=== PATIENT | female | born 1965 | race Caucasian/White ===

== ENCOUNTER 2018-02-24 14:22 | Emergency (ER) | payer BC ==
[~2018-02-24] VITALS: Wt 90.0 kg
[~2018-02-24 14:22] MED LIST: ASTHMA MEDS; BLOOD PRESSURE MED; LIPITOR
[2018-02-24] MEDS ORDERED: ALBUTEROL 0.083% (NEB) 2.5 MG/3 ML AMP HHN STA (15:09)
[2018-02-24] MEDS ORDERED: DEXAMETHASONE 10 MG/ML 1 ML INJ IM ONE (15:30)
[2018-02-24] MEDS ORDERED: BEN25 PO (16:29)
[2018-02-24] MEDS ORDERED: IBUP-1542 PO (16:29)
[2018-02-24] MEDS ORDERED: ALBU18HF INHALATION (16:29)
--- NOTE | 2018-02-24 16:32 | ERD ---
ER Documentation Chief Complaint Chief Complaint ap,nause,BLRRY VISION HPI 52-year-old female presents with multiple complaints. She has coughing and wheezing which started in the last day. She is homeless and is staying with apart. Her partner is having similar symptoms. She also has associations have been moving around in her vagina with some irritation and swelling. She denies discharge or dysuria. She denies fevers, vomiting, chest pain. ROS All systems reviewed and are negative except as per history of present illness. Medications Home Meds Active Scripts Albuterol Sulfate* (Ventolin HFA*) 18 Gm Hfa.aer.ad, 2 PUFF INHALATION Q4H, #1 INHALER Prov:DEWAYNE SKINNER MD 02/24/18 Ibuprofen* (Motrin*) 600 Mg Tab, 600 MG PO Q6, #15 TAB Prov:DEWAYNE SKINNER MD 02/24/18 Diphenhydramine Hcl* (Benadryl*) 25 Mg Cap, 25 MG PO Q6, #15 CAP Prov:DEWAYNE SKINNER MD 02/24/18 Reported Medications [Blood Pressure Med] No Conflict Check 09/21/12 [Asthma Meds] INH No Conflict Check 01/17/10 [Lipitor] TAB No Conflict Check 01/17/10 Allergies Allergies: Coded Allergies: No Known Allergies (Verified Allergy, Unknown, 02/24/18) PMhx/Soc Medical and Surgical Hx: pt denies Surgical Hx History of Surgery: No Anesthesia Reaction: No Hx Neurological Disorder: No Hx Respiratory Disorders: Yes (ENVIROMENTAL ALLERGIES AND ASTHMA) Hx Cardiac Disorders: No Hx Psychiatric Problems: No Hx Miscellaneous Medical Probl: No Hx Alcohol Use: Yes (OCCASIONALLY) Hx Substance Use: Yes (OCC MARIJUANA) Hx Tobacco Use: Yes (7 CIG/DAY OCCASIONAL MARIJUANA) Smoking Status: Never smoker FmHx Family History: No diabetes, No coronary disease, No other Physical Exam Vitals Vital Signs Date Temp Pulse Resp B/P (MAP) Pulse Ox O2 O2 Flow FiO2 Time Delivery Rate 02/24/18 91 18 99 21 15:19 02/24/18 98.2 91 18 140/78 99 14:26 (98) Physical Exam Const: No acute distress Head: Atraumatic Eyes: Normal Conjunctiva ENT: Normal External Ears, Nose and Mouth. TMs and oropharynx normal. Neck: Full range of motion. No meningismus. Resp: Clear to auscultation bilaterally. Scattered wheezing without rales or retractions. Cardio: Regular rate and rhythm, no murmurs Abd: Soft, non tender, non distended. Normal bowel sounds Skin: No petechiae or purpura. Faint blanching macular papular rash. Back: No midline or flank tenderness Ext: No cyanosis, or edema Neur: Awake and alert Psych: Normal Mood and Affect Pelvic examination with farmworker machine shows no foreign bodies, erythema, charge or appreciable significant abnormalities. Albuterol treatment and Decadron 10 mg IM. Patient states wheezing, rash, possibly allergic reaction. Started after [place] in the park. She has no evidence of hypoxemia, rest or distress, signs of pneumonia. She will treated with Benadryl, Ventolin, Profen, primary care follow-up and return precautions. The patient was stable with no new complaints during the ER course. Clinically, there is no current evidence to suggest meningitis, sepsis, acute abdomen, pneumonia, stroke, acute coronary syndrome, pulmonary embolism, aortic dissection or any other emergent condition appearing to require further evaluation or hospitalization. Patient counseled regarding my diagnostic impression and care plan. Prior to discharge all questions answered. Pt agrees with treatment plan and understands strict return precautions. Pt is instructed to follow up with primary care provider within 24-48 hours. Precautionary instructions provided including instructions to return to the ER if not improving or for any worsening or changing symptoms or concerns. Results 24 hrs Current Medications Medications Dose Sig/Roberto Start Time Status Last (Trade) Ordered Route PRN Stop Time Admin Dose Reason Admin 10 mg ONCE ONCE 02/24/18 DC 02/24/18 Dexamethasone IM 15:30 02/24/18 15:38 (Decadron) 15:31 Albuterol 5 mg ONCE STAT 02/24/18 DC 02/24/18 (Proventil HHN 15:09 02/24/18 15:18 0.083% (Neb)) 15:11 Departure Diagnosis: Primary Impression: Multiple joint complaints Additional Impression: Wheezing Condition: Stable Patient Instructions: Allergic Reaction, Other (General), Symptoms With Uncertain Cause Additional Instructions: May be unspecified allergic reaction. Recheck for new or worsening symptoms with primary care doctor. DEWAYNE SKINNER MD Feb 24, 2018 16:31
[2018-02-24 17:03] VITALS: PULSE 85
== END 2018-02-24 17:04 | disposition home or self-care (01) ==
LOC: FTE 14:22
DX: M25.50 Pain in unspecified joint (principal); R06.2 Wheezing; Z87.891 Personal history of nicotine dependence
CPT/HCPCS: 94664; 96372; J1100; Z7502; Z7610